=== PATIENT | male | born 1955 | race African-American/Black ===

== ENCOUNTER 2022-07-20 18:22 | Emergency (ER) | payer SELFPAY ==
[~2022-07-20] VITALS: Ht 172.7 cm; Wt 111.4 kg
[2022-07-20 18:34] VITALS: BP 171/112
[2022-07-20] MEDS ORDERED: BACITRACIN 15GM TUBE TOP ONE (19:45)
== END 2022-07-20 22:00 ==
LOC: ER 18:22
DX: S60.212A Contusion of left wrist, initial encounter (principal); Y08.89XA Assault by other specified means, initial encounter; Y93.89 Activity, other specified; Y92.89 Other specified places as the place of occurrence of the external cause; Y99.8 Other external cause status; I10 Essential (primary) hypertension
CPT/HCPCS: 99283